=== PATIENT | male | born 1990 | race American Indian/Alaskan Native ===

== ENCOUNTER 2019-01-11 13:20 | Emergency (ER) | payer MEDICAID, OTHER ==
--- NOTE | 2019-01-11 13:42 | Emergency Department Record ---
History of Present Illness - General Chief Complaint: Knee injury Stated Complaint: L KNEE INJURY Time Seen by Provider: 01/11/19 13:39 Source: Patient Mode of Arrival: Ambulatory Limitations: No limitations - History of Present Illness Initial Comments: 28 yo male presents with a left knee injury about 1 hour [employer]. He was walking through a field and felt the medial side of the knee pop and felt like it moved. He has had some recurrent similar issues with the knee since 2013 after a basketball injury. His patella did not move out of place. No swelling. He has some medial joint line tenderness. MD Complaint: Knee injury -: Hour(s) (1) Type of Injury: Other Place: Other (Walking in a field) Improves With: Immobilization Worsens With: Palpation, Weight bearing Context: Walking Associated Symptoms: Snap/pop sensation - Related Data Home Medications Medication Instructions Recorded Confirmed Last Taken No Home Med [NO HOME MEDS] 01/11/19 01/11/19 Unknown Allergies Allergy/AdvReac Type Severity Reaction Status Date / Time No Known Drug Allergies Allergy Verified 01/11/19 13:35 Review of Systems Constitutional: Denies: Chills, Fever, Malaise, Weakness Eyes: Denies: Eye discharge ENT: Denies: Congestion, Throat pain Respiratory: Denies: Cough, Dyspnea Cardiovascular: Denies: Chest pain, Palpitations, Syncope Endocrine: Denies: Fatigue Gastrointestinal: Denies: Abdominal pain Genitourinary: Denies: Dysuria Musculoskeletal: Reports: As per HPI, Arthralgia Skin: Denies: Bruising, Change in color, Rash Neurological: Denies: Numbness, Tingling, Weakness Psychiatric: Denies: Anxiety Hematological/Lymphatic: Denies: Easy bleeding, Easy bruising Physical Exam - General General Appearance: Alert, Oriented x3, Cooperative, No acute distress Limitations: No limitations - Head Head exam: Atraumatic, Normal inspection - Eye Eye exam: Normal appearance, PERRL. negative: Conjunctival injection, Scleral icterus - ENT ENT exam: Normal exam, Mucous membranes moist Ear exam: Normal external inspection Nasal Exam: Normal inspection Mouth exam: Normal external inspection - Neck Neck exam: Normal inspection - Rectal Rectal exam: Deferred - exam: Deferred - Extremities Extremities exam: Normal inspection, Full ROM, Tenderness. negative: Calf tenderness, Joint swelling, Normal capillary refill, Pedal edema Image of Full Body: 1 - mild medial joint line tenderness, no effusion, patella is midline, some anterior laxity compared to the right knee without posterior laxity, - Back Back exam: Reports: Full ROM. Denies: Tenderness - Neurological Neurological exam: Alert, Oriented X3 - Psychiatric Psychiatric exam: Normal affect, Normal mood. negative: Agitated, Anxious - Skin Skin exam: Dry, Intact, Normal color, Warm Course - Reevaluation(s) Reevaluation #1: 01/11/19 14:15 The knee XR was reviewed No acute process I recommend crutches and knee brace given he does seem to have laxity in the AP direction I discussed he could have some long standing knee issues I recommend he see his PCP and possible outpatient MRI 01/11/19 14:36 Copy of XR provided given [place] of [place] Disposition Disposition: Discharge Clinical Impression: Knee sprain Qualifiers: Encounter type: initial encounter Involved ligament of knee: unspecified ligament Laterality: left Qualified Code(s): S83.92XA - Sprain of unspecified site of left knee, initial encounter Disposition: Home, Self-Care Condition: (1) Good Instructions: Knee Sprain (ED) Additional Instructions: Call your doctor for a recheck of the knee pain You might have ligament or cartilage injury and may require more testing like an MRI of the left knee Use the crutches and knee brace for support and comfort Forms: Patient Portal Access Time of Disposition: 14:16 Quality - Quality Measures Quality Measures: N/A - Blood Pressure Screening Does Patient Have Any of the Following: No Blood Pressure Classification: Pre-Hypertensive BP Reading Systolic Measurement: 124 Diastolic Measurement: 87 Screening for High Blood Pressure: < Pre-Hypertensive BP, F/U Documented > [G8950] Pre-Hypertensive Follow-up Interventions: Referral to alternative/primary care provider.
--- NOTE | 2019-01-11 14:23 | RADIOLOGY REPORT ---
EXAMINATION: Left Knee, Three Views EXAM DATE: 01/11/2019 2:03 PM TECHNIQUE: Frontal, lateral, and oblique INDICATION: popped walking on soft uneven ground COMPARISON: None ENCOUNTER: Initial FINDINGS: Normal bony architecture. No acute fracture or dislocation. IMPRESSION: No acute abnormality, follow-up MRI if symptoms persist Dictated by: Derek You MD on 01/11/2019 2:18 PM. .
== END 2019-01-11 14:31 | disposition home or self-care (01) ==
LOC: ER 13:20
DX: S83.92XA Sprain of unspecified site of left knee, initial encounter (principal); X50.0XXA Overexertion from strenuous movement or load, initial encounter; Y93.01 Activity, walking, marching and hiking; Y92.89 Other specified places as the place of occurrence of the external cause
CPT/HCPCS: 99283